=== PATIENT | female | born 1960 | race Caucasian/White ===

== ENCOUNTER → 2016-02-21 | Outpatient (CLI) | payer OTHER, MEDICAID ==
[~2016-02-21] MED LIST: IBU-8800 MG PO; LORTAB 5/500 501 TAB PO; ZITHROMAX Z PA250 MG PO
--- NOTE | 2016-02-23 15:28 | RADIOLOGY REPORT PS360 ---
DIG MAMM-SCREEN JYOTI W/CAD CAD Screening ORDERING PHYSICIAN : Cristian Elliott MD PATIENT AGE: 55 years GENDER: Female COMPARISON: Previous mammograms: June 2011. February INDICATION: Routine screening no hormones patient complains of tingling at left breast past one month Family history. Noncontributory TECHNIQUE: Standard CC and MLO images were obtained. R2 CAD reviewed. FINDINGS: Moderate density breast. Mild asymmetry. LEFT BREAST: On cc view there is a 7 mm nodular density which is developed at the deep left breast labeled Y. Most likely towards 6:00. On MLO view. Area of density labeled X at upper-outer quadrant left breast. Most likely was present on 2007 and 2003 exam exam. Most likely stable feature but is accentuated on today's MLO projection versus 2012 images. Recommend spot views & ultrasound to further evaluate both of these areas left breast. Both area Y and X RIGHT BREAST: Minimal density in the retroareolar region on cc view dissipates on MLO view most likely stable. However I would suggest a spot CC viewing the patient returns as well. IMPRESSION...... 1.: LEFT BREAST:....... Recommend spot views and ultrasound left breast of areas X and Y: Ovoid density 7 mm deep left breast labeled Y Also area labeled X upper-outer quadrant left breast-most likely is stable fibroglandular tissue accentuated by summation shadow on today's MLO view. 2. RIGHT BREAST: : Minimal density retroareolar region on cc view is most likely summation shadow- but would benefit from spot view here when patient returns as well BI-RADS CATEGORY: 0 RECOMMENDED FOLLOWUP: ADD ADDITIONAL IMAGING both breast as above . Spot views both breasts. Ultrasound left breast. (A letter has been sent to the patient regarding results of the study.)
== END ==
LOC: RAD 15:16
DX: Z12.31 Encounter for screening mammogram for malignant neoplasm of breast (principal)
CPT/HCPCS: G0202

== ENCOUNTER → 2016-03-09 | Outpatient (CLI) | payer OTHER, MEDICAID ==
--- NOTE | 2016-03-09 11:57 | RADIOLOGY REPORT PS360 ---
US [id number] HISTORY: HTN COMPARISON: None FINDINGS: RIGHT KIDNEY:Unremarkable. Normal size and echogenicity. No hydronephrosis. 10 x 5 x 7 cm. A small area of increased echogenicity along the lower pole the right kidney and could represent a small nonobstructing renal stone LEFT KIDNEY:Unremarkable. No hydronephrosis. Normal size and echogenicity. 11 x 5 x 6 cm OTHER FINDINGS: No other pertinent findings IMPRESSION: Possible right nephrolithiasis otherwise negative bilateral renal ultrasound
--- NOTE | 2016-03-09 15:49 | RADIOLOGY REPORT PS360 ---
[facility] History and Indications: Hypertension family history of heart disease. Procedure: Patient received 0.4 mg of Lexiscan, resting heart rate was 74 bpm resting blood pressure 137/75 mmHg, with Lexiscan maximum heart rate achieved was 103 bpm which is less than 85% of the maximum predicted heart rate and a blood pressure was 118/70. With Lexiscan patient denied any complained of chest pain or shortness of breath. Electrocardiogram: Resting electrocardiogram showed sinus rhythm nonspecific ST-T changes ,with Lexiscan, there is less than 1.[address] segment depression noted from the baseline EKG, occasional premature ventricular complexes were also seen. The EKG portion of the Lexiscan is nondiagnostic. Cardiac stress and resting SPECT images: Cardiac stress and rest SPECT images were obtained using technetium 99 Myoview 10.3 MCI at rest 29.3 MCI at rest gated SPECT for analysis of segmental wall motion and calculation of the ejection fraction was also done. Cardiac stress and rest SPECT images show mild decreased tracer activity in the anterolateral wall with normal perfusion of the apex is likely secondary to soft tissue attenuation from breast, no reversible ischemia seen, computer derived ejection fraction is over 65% with no obvious regional wall motion abnormality, right ventricle is normal size and contractility. Conclusion: 1. The EKG portion of the Lexiscan is nondiagnostic 2. No obvious scintigraphic evidence of reversible ischemia seen, computer derived ejection fraction is over 65% with no obvious regional wall motion abnormality, right ventricle is normal size and contractility. 3. Normal Lexiscan Myoview study
== END ==
LOC: RAD 05:39
DX: R07.9 Chest pain, unspecified (principal); I10 Essential (primary) hypertension; Z82.49 Family history of ischemic heart disease and other diseases of the circulatory system
CPT/HCPCS: A9502; J2785

== ENCOUNTER → 2016-04-07 | Outpatient (CLI) | payer OTHER, MEDICAID ==
--- NOTE | 2016-04-07 17:46 | RADIOLOGY REPORT PS360 ---
CT SINUS (MAX-FACIAL W/O CONT) ORDERING PHYSICIAN : Brandt Hayes MD PATIENT AGE: 55 years GENDER: Female INDICATION: CHRONIC SINUSITIS OF BOTH MAXILLARY , ACUTE RECURRENT TECHNIQUE: Helical CT scanning performed through the facial bones/ paranasal sinuses with multiplanar reconstruction CT workstation COMPARISON: Previous CT sinuses 05/01/2014 FINDINGS: FRONTAL SINUSES. Scant mucosal thickening inferior right frontal sinus near junction w ethmoid air cells. ETHMOID SINUSES. Scant barely evident mucosal thickening mid & anterior ethmoid air cells which becomes most notable approaching junction with the frontal sinuses SPHENOID SINUS: clear &. Unremarkable. MAXILLARY SINUSES. . No mucosal thickening, Clear & Unremarkable There is been regression of the previously noted mucosal thickening floor of left maxillary sinus. This has resolved since 2014. The ostiomeatal pathway thin but patent bilaterally. Prominent engorgement nasal turbinates, right greater than left. Deviation nasal septum w/ mild convexity to left at mid septum. Small 2.4 mm septal spur to the left. . Mastoid air cells well-developed and clear. Middle ear and IACs unremarkable. What is included on images the brain limited but unremarkable \ The temporomandibular joints are unremarkable The orbits are unremarkable. IMPRESSION:--------- 1. Maxillary sinuses are clear & unremarkable on today's study Previous mucosal thickening floor of left mastoid sinus has resolved since [address] CT 2. Minor mucosal thickening inferior frontal sinus , most evident at floor right frontal sinus. Only Very Subtle barely appreciable mucosal thickening anterior ethmoid air cells 3. Generous Engorgement nasal turbinates w/ mild deviation nasal septum. Small septal spur to the left
== END ==
LOC: RAD 13:24
DX: J32.0 Chronic maxillary sinusitis (principal); J01.01 Acute recurrent maxillary sinusitis

== ENCOUNTER → 2016-10-19 | Outpatient (CLI) | payer OTHER, MEDICAID ==
[~2016-10-19] MED LIST changes: +CETIRIZINE HCL10 MG; +GABAPENTIN300 MG; +LISINOPRIL AND1 TA3 PO; +LISINOPRIL AND1 TAB; +MEDROL 4MG. DOSE4 MG PO; +NAPROXEN500 M1; +SINGULAIR 10 MG10 MG; +ZOFRAN4 MG PO
[2016-10-19 13:40] LABS: HEMOGLOBIN 11.8 g/dL (12.2-16.2); LYMPH # 2.9 K/mm3 (0.7-4.5); LYMPH % 52.1 % (10-50.0)
[2016-10-19 14:44] LABS: NEUTROPHILS 35 % (42-76)
[2016-10-19 15:02] LABS: BUN 12 mg/dL (7-18); GFR (ESTIMATED) 87 ML/MIN (59-)
== END ==
LOC: LAB 13:28
PROVIDERS: Nurse Practitioner Family
DX: Z00.00 Encounter for general adult medical examination without abnormal findings (principal)

== ENCOUNTER → 2017-01-02 | Outpatient (CLI) | payer OTHER, MEDICAID ==
[~2017-01-02] MED LIST changes: +ALLEGRA ALLERG180 MG OR; +GABAPENTIN300 MG PO
== END ==
LOC: LAB 16:18
DX: R10.9 Unspecified abdominal pain (principal)

== ENCOUNTER → 2017-02-01 | Outpatient (CLI) | payer OTHER, MEDICAID ==
[2017-02-01 16:30] LABS: BUN 10 mg/dL (7-18)
[2017-02-01 16:39] LABS: GFR (ESTIMATED) 104 ML/MIN (59-)
== END ==
LOC: LAB 13:56
PROVIDERS: Orthopaedic Surgery
DX: G56.01 Carpal tunnel syndrome, right upper limb (principal); Z01.812 Encounter for preprocedural laboratory examination

== ENCOUNTER → 2017-02-02 | Day surgery (SDC) | payer OTHER, MEDICAID ==
[~2017-02-02] VITALS: Ht 165.1 cm; Wt 107.5 kg
[2017-02-02 10:15] VITALS: BP 114/66
[2017-02-02 10:43] VITALS: BP 114/66
[2017-02-02 10:45] VITALS: BP 124/70
--- NOTE | 2017-02-02 11:00 | Procedure Note ---
Procedure detail Date of procedure: 02/02/17 Anesthesiologist: Mark Blood Complications: None Pre-procedure diagnosis: Degenerative disc disease lumbar spine multiple levels. Lumbar facet arthropathy. Post-procedure diagnosis: Same. Indications for procedure: Pleasant 56-year-old white female that presents for procedure clinic today for RFA RIGHT L3-4, L4-5, L5-S1. Patient responded extremely well to medial branch blocks at the same levels bilaterally. Procedure detail: The procedure was explained to the patient in detail. Consent form was signed. Patient was taken back to the procedure room, where noninvasive monitors were placed. This included noninvasive blood pressure cuff and pulse oximeter. The patient was placed prone on the C-arm table. The area over the lumbar spine was cleansed using chlorhexidine as cleansing solution. Using fluoroscopy guidance, markers were placed over the pedicle at the RIGHT L4, L5 as well as over the sacral ala. 1% Lidocaine was used to anesthetize the skin with a 25-gauge needle at these markers. Using fluoroscopy guidance the radiofrequency probe was used to access the superior margin of the pedicle at RIGHT L4, L5 and the sacral ala. After negative motor stimulation, 2 mls of 0.25% Marcaine and 10 mg of Depo -Medrol were injected into each needle. We then proceeded with radial frequency ablation at all 3 levels at 80 degrees Celsius 60 seconds. After the lesion was formed the needles were withdrawn. Band-Aids were applied. The patient tolerated the procedure without difficulty. There were no complications Plan and disposition: Patient was reevaluated 10 minutes post procedure. She doing very well. She'll return to see us in 2 weeks for LEFT side RFA L3-4, L4-5, L5-S1. at [id number]
[2017-02-02 11:16] VITALS: BP 141/77
== END ==
LOC: PM 01-30 14:15
PROC: 3E0T3TZ Introduction of Destructive Agent into Peripheral Nerves and Plexi, Percutaneous Approach (ICD-10-PCS; principal; 2017-02-02)
PROC: BR161ZZ Fluoroscopy of Lumbar Facet Joint(s) using Low Osmolar Contrast (ICD-10-PCS; 2017-02-02)
DX: M51.36 Other intervertebral disc degeneration, lumbar region (principal); M54.06 Panniculitis affecting regions of neck and back, lumbar region
CPT/HCPCS: J1030

== ENCOUNTER 2017-02-13 13:56 | Day surgery (SDC) | payer OTHER, MEDICAID ==
[~2017-02-13] VITALS: Ht 165.1 cm; Wt 103.9 kg
[2017-02-13 15:18] VITALS: BP 129/59
[2017-02-13 15:41] VITALS: BP 129/59; BP 147/85
--- NOTE | 2017-02-13 16:01 | Procedure Note ---
Procedure detail Date of procedure: 02/13/17 Anesthesiologist: Mark Blood Complications: None Pre-procedure diagnosis: Degenerative disease lumbar spine multiple levels. Lumbar spondylosis. Post-procedure diagnosis: Same. Indications for procedure: Very pleasant 86-year-old white female returns our procedural clinic today for LEFT side RFA L3-4, L4-5, L5-S1. She responded extremely well to the RIGHT side same levels. Procedure detail: The procedure was explained to the patient in detail. Consent form was signed. Patient was taken back to the procedure room, where noninvasive monitors were placed. This included noninvasive blood pressure cuff and pulse oximeter. The patient was placed prone on the C-arm table. The area over the lumbar spine was cleansed using chlorhexidine as cleansing solution. Using fluoroscopy guidance, markers were placed over the pedicle at the [LEFT][ L4, L5] as well as over the [sacral ala]. 1% Lidocaine was used to anesthetize the skin with a 25-gauge needle at these markers. Using fluoroscopy guidance the radiofrequency probe was used to access the superior margin of the pedicle at [ L4, L5 and the sacral ala ]. After negative motor stimulation, 2 mls of 0.25% Marcaine and 10 mg of Depo- Medrol were injected into each needle. We then proceeded with radial frequency ablation at all 3 levels at 80 degrees Celsius 60 seconds. After the lesion was formed the needles were withdrawn. Band-Aids were applied. The patient tolerated the procedure without difficulty. There were no complications Plan and disposition: Patient was reevaluated 10 minutes post procedure. She doing very well. She'll return to see us in the pain clinic for further evaluation. at [id number]
[2017-02-13 16:02] VITALS: BP 126/53
== END 2017-02-13 16:02 | disposition home or self-care (01) ==
LOC: PM 13:56
PROC: 3E0T3TZ Introduction of Destructive Agent into Peripheral Nerves and Plexi, Percutaneous Approach (ICD-10-PCS; principal; 2017-02-13)
PROC: BR161ZZ Fluoroscopy of Lumbar Facet Joint(s) using Low Osmolar Contrast (ICD-10-PCS; 2017-02-13)
DX: M51.36 Other intervertebral disc degeneration, lumbar region (principal); M47.896 Other spondylosis, lumbar region
CPT/HCPCS: J1030